=== PATIENT | female | born 2000 | race American Indian/Alaskan Native ===

== ENCOUNTER 2021-09-09 12:48 | Emergency (ER) | payer SELFPAY ==
[2021-09-09] MEDS ORDERED: ACETAMINOPHEN W/CODEINE 300-30 MG TAB PO ONE (15:12)
[2021-09-09] MEDS ORDERED: KETOROLAC 10 MG TAB PO ONE (15:12)
--- NOTE | 2021-09-09 16:52 | Vascular Lab Report ---
DUPLEX DOPPLER LOWER EXTREMITY VEINS, RIGHT INDICATION / CLINICAL INFORMATION: pain. TECHNIQUE: Duplex doppler imaging was performed through the veins of the right lower extremity using venous comp ression and other maneuvers. COMPARISON: None available. FINDINGS: RIGHT COMMON FEMORAL VEIN: Negative. RIGHT FEMORAL VEIN: Negative. RIGHT POPLITEAL VEIN: Negative. RIGHT CALF VEINS: Negative. ADDITIONAL FINDINGS: None. IMPRESSION: 1. No sonographic evidence for DVT in the right lower extremity. Signer Name: Marcelino Means MD Signed: 09/09/2021 4:48 PM Workstation Name: [id number]
--- NOTE | 2021-09-09 17:16 | XRay Report ---
Right hip-2 views INDICATION: hip pain. COMPARISON: None available. IMPRESSION: No acute osseous abnormality. Normal alignment. No significant DJD. Soft tissues are u nremarkable. Signer Name: Bryan Wasserman MD Signed: 09/09/2021 5:12 PM Workstation Name: [id number]
[2021-09-09] MEDS ORDERED: predniSONE 20 MG TAB PO ONE (18:01)
--- NOTE | 2021-09-09 18:44 | Emergency Department Report ---
ED Extremity Problem HPI - General Chief complaint: Pain General Stated complaint: HIP PAIN Time Seen by Provider: 09/09/21 15:10 Source: patient Mode of arrival: Ambulatory Limitations: No Limitations - History of Present Illness Initial comments: 21-year-old black female with no past medical history presents to the emergency department for evaluation of right hip and leg pain for the last 1.5 weeks. She states that she has not had any injury or trauma but has had increase in pain with decrease in range of motion to right hip and leg area for 1-1/2 weeks. She states that pain is usually in her right hip area and sometimes radiates down her leg. She denies fever, dysuria, abdominal pain, saddle anesthesia, chest pain, shortness of breath, and hemoptysis. She states that pain is 10 out of 10 and she has not taken any medication for her symptoms. MD Complaint: extremity pain -: Gradual, week(s) (1.5) Location: right, lower extremity (Hip and leg.) History of Same: No -: No myalgia, No arthralgia, No fever, No associated dyspnea, No associated chest pain Severity scale (0 -10): 10 Quality: aching Consistency: constant Worsens with: weight bearing Associated Symptoms: denies: chest pain, shortness of breath, fever, myalgias, arthralgias, rash - Related Data Previous Rx's Medication Instructions Recorded Last Taken Type Naproxen [Naprosyn] 500 mg PO BID PRN #14 tab 09/09/21 Unknown Rx Prednisone [predniSONE 10 mg 10 mg PO .TAPER #1 pack 09/09/21 Unknown Rx (6-Day Pack, 21 Tabs)] Allergies Allergy/AdvReac Type Severity Reaction Status Date / Time No Known Allergies Allergy Verified 09/09/21 13:04 ED Review of Systems ROS: Stated complaint: HIP PAIN Other details as noted in HPI Comment: All other systems reviewed and negative Constitutional: denies: chills, fever Respiratory: denies: shortness of breath Cardiovascular: denies: chest pain, palpitations Gastrointestinal: denies: abdominal pain, nausea, vomiting Genitourinary: denies: urgency, dysuria, frequency, hematuria, discharge Musculoskeletal: denies: back pain Skin: denies: rash, lesions Psychiatric: denies: anxiety, depression ED Past Medical Hx - Past Medical History Previous Medical History?: No - Surgical History Past Surgical History?: No - Social History Smoking Status: Never Smoker - Medications Home Medications: Home Medications Medication Instructions Recorded Confirmed Last Taken Type Naproxen [Naprosyn] 500 mg PO BID PRN #14 tab 09/09/21 Unknown Rx Prednisone [predniSONE 10 mg 10 mg PO .TAPER #1 pack 09/09/21 Unknown Rx (6-Day Pack, 21 Tabs)] ED Physical Exam - General Limitations: No Limitations General appearance: alert, in no apparent distress - Head Head exam: Present: atraumatic, normocephalic - Eye Eye exam: Present: normal appearance. Absent: conjunctival injection - Neck Neck exam: Present: normal inspection. Absent: tenderness - Respiratory Respiratory exam: Present: normal lung sounds bilaterally. Absent: respiratory distress, wheezes, rales, rhonchi, stridor, chest wall tenderness - GI/Abdominal GI/Abdominal exam: Present: soft, normal bowel sounds. Absent: distended, tenderness, guarding, rebound, rigid - Extremities Exam Extremities exam: Present: normal inspection - Expanded Lower Extremity Exam Right Hip exam: Present: normal inspection, tenderness. Absent: full ROM, swelling, abrasion, laceration, crepidus, dislocation, erythema, external rotation, internal rotation, shortening, pelvic stability Upper Leg exam: Present: normal inspection, tenderness. Absent: swelling, abrasion, laceration, ecchymosis, deformity, crepidus, dislocation, erythema Neuro vascular tendon exam: Present: no vascular compromise. Absent: pulse deficit, abnormal cap refill, motor deficit, sensory deficit, extremity cold to touch, pallor Gait: Positive: observed and limited by pain - Back Exam Back exam: Present: normal inspection. Absent: CVA tenderness (R), CVA tenderness (L), vertebral tenderness - Neurological Exam Neurological exam: Present: alert, oriented X3 - Psychiatric Psychiatric exam: Present: normal affect, normal mood - Skin Skin exam: Present: warm, dry, intact, normal color ED Course Vital Signs 09/09/21 09/09/21 12:59 20:10 Temperature 97.8 F 98.0 F Pulse Rate 81 88 Respiratory 76 H 15 Rate Blood Pressure 106/61 Blood Pressure 130/70 [Left] O2 Sat by Pulse 99 100 Oximetry ED Medical Decision Making - Radiology Data Radiology results: report reviewed, image reviewed Right lower extremity venous Doppler: FINDINGS: RIGHT COMMON FEMORAL VEIN: Negative. RIGHT FEMORAL VEIN: Negative. RIGHT POPLITEAL VEIN: Negative. RIGHT CALF VEINS: Negative. ADDITIONAL FINDINGS: None. IMPRESSION: 1. No sonographic evidence for DVT in the right lower extremity. Right hip x-ray: IMPRESSION: No acute osseous abnormality. Normal alignment. No significant DJD. Soft tissues are unremarkable. - Medical Decision Making 21-year-old black female with no past medical history presents to the emergency department for evaluation of right hip and leg pain for the last 1.5 weeks. She states that she has not had any injury or trauma but has had increase in pain with decrease in range of motion to right hip and leg area for 1-1/2 weeks. She states that pain is usually in her right hip area and sometimes radiates down her leg. She denies fever, dysuria, abdominal pain, saddle anesthesia, chest pain, shortness of breath, and hemoptysis. She states that pain is 10 out of 10 and she has not taken any medication for her symptoms. Right hip x-ray without any acute abnormalities noted. Right lower extremity Doppler negative for DVT. Pain likely to be secondary to sciatic nerve. Patient will be treated with 7-day course of steroids along with naproxen to use for pain. She is advised to take medications as prescribed and follow-up with primary care provider if no improvement or worsening symptoms. She verbalizes understanding of and agreement with plan of care. Critical care attestation.: If time is entered above; I have spent that time in minutes in the direct care of this critically ill patient, excluding procedure time. ED Disposition Clinical Impression: Right leg pain Disposition: 01 HOME / SELF CARE / HOMELESS Is pt being admited?: No Does the pt Need Aspirin: No Condition: Stable Instructions: How to Use Cold Therapy, [id number], Sciatica, [id number] Additional Instructions: Take medications as prescribed. Follow-up with primary care provider if no improvement or worsening symptoms. Return to the emergency department as needed. Prescriptions: Naproxen [Naprosyn] 500 mg PO BID PRN #14 tab PRN Reason: Pain, Moderate (4-6) Prednisone [predniSONE 10 mg (6-Day Pack, 21 Tabs)] 10 mg PO .TAPER #1 pack Referrals: LUKAS BALLESTEROS MD [Primary Care Provider] - 3-5 Days Forms: Work/School Release Form(ED) Time of Disposition: 18:44
[2021-09-09 20:11] VITALS: BP 130/70
== END 2021-09-09 20:11 | disposition home or self-care (01) ==
LOC: ED 12:48
DX: M79.604 Pain in right leg (principal); Z79.899 Other long term (current) drug therapy
CPT/HCPCS: 99284